=== PATIENT | male | born 2000 | race Caucasian/White ===

== ENCOUNTER 2024-07-05 11:30 | Emergency (ER) | payer OTHER, SELFPAY ==
[2024-07-05 11:42] VITALS: BP 138/96; PULSE 90; RESP 18; TEMP 37.3; O2SAT 100
--- NOTE | 2024-07-05 12:53 | ED.URI ---
HPI - URI/Sore Throat General Chief Complaint: Upper Respiratory Infection Stated Complaint: Sore Throat/Cough Time Seen by Provider: 07/05/24 12:30 Source: patient, RN notes reviewed and old records reviewed Mode of arrival: ambulatory Limitations: no limitations History of Present Illness HPI Narrative: 24 year old male presents to [facility] care with sore throat, cough, runny nose and also bad headache for the past 3 days Patient reports that he has been taking some Ibuprofen for his symptoms, He states that he thinks that h that he has had a low grade fever, has had some chills. Patient reports that initially he had had some margaritas and he thought that it had irritated his throat but pain has continued especially when swallowing. MD elicited complaint: cough, sore throat and other (headache) Onset (ago): day(s) (3) Severity: moderate Description of mucous: clear Able to tolerate fluids by mouth: Yes Treatments prior to arrival: ibuprofen Related Data Allergies Allergy/AdvReac Type Severity Reaction Status Date / Time No Known Allergies Allergy Verified 07/05/24 12:24 Review of Systems Review of Systems: CONSTITUTIONAL: Reports malaise, chills, sweats, or fever. EYES: Denies visual changes, redness, or discharge. ENT: Reports rhinorrhea, congestion, nosinus pain,no otalgia and positive for sore throat. CARDIOVASCULAR: Denies chest pain, palpitations, or edema. RESPIRATORY: Reports cough.? Denies dyspnea. GASTROINTESTINAL: Denies abdominal pain, nausea, vomiting, diarrhea SKIN: Denies rash or itching. MUSCULOSKELETAL: Denies myalgia. NEUROLOGIC: Reports headache. All systems reviewed & are unremarkable except as noted in HPI and below PMFSH Social History Social History (Updated 07/06/24 @ 13:58 by Brittnee Lester NP) Smoking status: Never smoker Alcohol intake: current Alcohol use details: social Substance use type: does not use Gender identity (if verbalized by the patient): Male Comments At time of signature, agree with nursing past medical, surgical, social and family history. There is no relevant family history pertinent to the presenting complaint Exam Narrative: GENERAL: Well-appearing, well-nourished, and in no acute distress. HEAD: Normocephalic EYES: PERRLA, conjunctivae clear ENT: Nares clear, turbinates edematous and erythematous, clear discharge. Mucous membranes moist. TM pearly pereira with dull light reflex bilaterally; no tragal tenderness. Oropharynx erythematous without lesions. Tonsils not enlarged and without exudate, no drooling, no hoarseness, no trismus, uvula midline,post nasal drainage noted. NECK: Supple. No lymphadenopathy CHEST: Clear to auscultation, breath sounds equal. No wheezing, rhonchi, rales, or stridor. No respiratory distress, speaks in full sentences.occasional dry cough SAO2 100% on room air HEART: Regular rate and rhythm. No murmur heard. SKIN: Warm, dry, no rash. NEURO: Alert and oriented x3. PSYCH: Normal mood and affect Course Course Emergency Course: Patient is aware of diagnosis, understands and agrees to treatment plan.? Anticipatory guidance given.? Patient agrees to follow-up as directed and is aware of reasons to seek care at the emergency department. Portions of this record may have been created with voice recognition software Level of Care: Express Care Visit Vital Signs Vital signs: Vital Signs Temperature 37.3 C 07/05/24 11:42 Pulse Rate 90 07/05/24 11:42 Respiratory Rate 18 07/05/24 11:42 Blood Pressure 138/96 H 07/05/24 11:42 Pulse Oximetry 100 07/05/24 11:42 Oxygen Delivery Room Air 07/05/24 11:42 Temperature 37.3 C 07/05/24 11:42 Pulse Rate 90 07/05/24 11:42 Respiratory Rate 18 07/05/24 11:42 Blood Pressure 138/96 H 07/05/24 11:42 Pulse Oximetry 100 07/05/24 11:42 Oxygen Delivery Room Air 07/05/24 11:42 Reviewed MDM - URI/Sore Throat MDM Narrative
[2024-07-05 13:05] LABS: EDSTREPNEGPOS1 Negative (Negative)
[2024-07-05 13:26] LABS: EDCOVIDSCREEN Negative (Negative)
== END 2024-07-05 13:31 | disposition home or self-care (01) ==
PROVIDERS: Emergency Provider Registered Nurse
DX: J06.9 Acute upper respiratory infection, unspecified (principal); J02.9 Acute pharyngitis, unspecified; Z20.822 Contact with and (suspected) exposure to COVID-19
CPT/HCPCS: 87081; 87635; 87880; 99203; G0463